=== PATIENT | female | born 1945 | race Caucasian/White ===

== ENCOUNTER → 2016-12-18 | Outpatient (CLI) | payer OTHER ==
[~2016-12-18] MED LIST: ADVIN25/60 INH; ALBUAER2 PO; PANT40TA PO; RSTOPS OP
[2016-12-18 12:23] LABS: BASO ABS # 0.04 K/uL (0-0.2); COMPLETE YES; EOS % 8.1 %; HEMATOCRIT 40.8 % (37-47); LYMPH % 29.5 %; LYMPH ABS # 1.16 K/uL (1.2-3.4); MEAN CELL VOLUME 90.1 fL (80-100); MEAN CORPUSCULAR HEMOGLOBIN 31.3 pg (25-34); MEAN CORPUSCULAR HGB CONC 34.8 g/dl (32-36); MEAN PLATELET VOLUME 9.8 fL (7.4-10.4); MONO % 12.5 %; NEUT % 48.9 %; PLATELET COUNT 210 K/uL (130-400); RED BLOOD COUNT 4.53 M/uL (4.2-5.4); WHITE BLOOD COUNT 3.93 K/uL (4.8-10.8)
[2016-12-18 13:00] LABS: BLOOD UREA NITROGEN 18 mg/dl (7-18); BUN/CREATININE RATIO 24.3 (10-20); CALCIUM 9.5 mg/dl (8.5-10.1); CARBON DIOXIDE 29 mmol/L (21-32); CHLORIDE 107 mmol/L (98-107); CREATININE 0.74 mg/dl (0.60-1.20); GLUCOSE 96 mg/dl (70-99); POTASSIUM 3.9 mmol/L (3.5-5.1); SODIUM 140 mmol/L (136-145)
[2016-12-18 13:04] LABS: CHOLESTEROL 224 mg/dl (0-200); CHOLESTEROL/HDL RATIO 2.4; HDL CHOLESTEROL 93 mg/dl; LDL CHOLESTEROL CALCULATED 122 mg/dl; TRIGLYCERIDES 44 mg/dl (0-150); VERY LOW DENSITY LIPOPROT CALC 9 mg/dl
== END | disposition home or self-care (01) ==
LOC: C.LAB1850 11:05
PROVIDERS: ATTEND Internal Medicine
DX: E55.9 Vitamin D deficiency, unspecified (principal); D72.1 Eosinophilia; J45.909 Unspecified asthma, uncomplicated; E78.5 Hyperlipidemia, unspecified

== ENCOUNTER 2017-04-09 14:37 | Emergency (ER) | payer OTHER ==
[~2017-04-09] VITALS: Ht 162.6 cm; Wt 54.5 kg
[2017-04-09 14:43] VITALS: TEMP 36.7; Ht 162.6 cm; Wt 54.5 kg
[2017-04-09] MEDS ORDERED: SODIUM CHLORIDE 0.9% 1000ML 1,000 ML IV STA ×2 (16:09→18:30)
[2017-04-09] MEDS ORDERED: ONDANSETRON 8 MG/54 ML D5W IV STA (16:09)
--- NOTE | 2017-04-09 16:10 | EMERGENCY ROOM VISIT NOTE ---
History Report prepared by Mag: Paradise Oneill Under the Supervision of: Jessica SharmaO. First contact with patient: 15:52 Chief Complaint: FLU LIKE SX Stated Complaint: FLU LIKE SX FOR A WEEK History of Present Illness The patient is a 71 year old female who presents to the Emergency Room with complaints of worsening flu-like symptoms beginning about four days ago. The patient reports body aches, nausea, a cough, decreased appetite, back soreness, increased fatigue, and wheezing. She notes an episode of vomiting occurring 2 weeks ago. She states her cough is productive of green sputum. She did not get a flu shot this year. The patient denies any history of pneumonia. Pt denies rashes, sores, swelling in legs, headache, change in vision, fevers, chest pain , shortness of breath, urinary symptoms, vomiting, diarrhea, and melena. The patient was never a smoker. No prior hx of pneumonia. Pt has not been taking any OTC meds for her symptoms all this week. States recently ill, but his symptoms improved. Source of History: patient Onset: four days ago Position: other (generalized) Quality: other (flu-like symptoms) Timing: worsening Associated Symptoms: + cough, + nausea, + back pain, + diarrhea, + fatigue, No fevers, No chills, No headache, No chest pain, No SOB, No vomiting, No urinary symptoms Review of Systems See HPI for pertinent positives & negatives. A total of 10 systems reviewed and were otherwise negative. Past Medical & Surgical Medical Problems: (1) Acid reflux Family History No pertinent family history Social History Smoking Status: Never Smoker Marital Status: Housing Status: lives with family Current/Historical Medications Scheduled Azithromycin (Zithromax), 250 MG PO DAILY Benzonatate (Tessalon Perles), 100 MG PO Q8 Fluticasone Prop/Salmeterol (Advair Diskus 250/50 60 Dose), 1 PUFF INH DAILY Pantoprazole (Protonix), 40 MG PO QAM Allergies Coded Allergies: Sulfa Antibiotics (Verified Allergy, Unknown, RASH, 04/09/17) Physical Exam Vital Signs Date Time Temp Pulse Resp B/P (MAP) Pulse Ox O2 Delivery O2 Flow Rate FiO2 04/09/17 18:41 75 20 130/77 93 Room Air 04/09/17 17:37 74 96 04/09/17 17:20 141/82 04/09/17 16:53 86 04/09/17 16:38 88 20 136/87 96 Room Air 04/09/17 16:35 136/87 04/09/17 14:43 36.7 120 16 124/77 95 Room Air Physical Exam GENERAL: alert, well appearing, well nourished, no distress, non-toxic EYE EXAM: normal conjunctiva, PERRL and EOM's grossly intact OROPHARYNX: no exudate, no erythema, lips, buccal mucosa, and tongue normal and mucous membranes are mildly dry. NECK: supple, no nuchal rigidity, no adenopathy, non-tender LUNGS: Clear to auscultation. Normal chest wall mechanics HEART: no murmurs, S1 normal and S2 normal ABDOMEN: abdomen soft, non-tender, normo-active bowel sounds, no masses, no rebound or guarding. BACK: Back is symmetrical on inspection and there is no deformity, no midline tenderness, no CVA tenderness. SKIN: no rashes and no bruising UPPER EXTREMITIES: upper extremities are grossly normal. LOWER EXTREMITIES: No pitting edema. NEURO EXAM: Normal sensorium, cranial nerves II-XII grossly intact, normal speech, no gross weakness of arms, no gross weakness of legs. Medical Decision & Procedures ER Provider Diagnostic Interpretation: Radiology results have been interpreted by the radiologist and reviewed by me. CHEST 2 VIEWS ROUTINE FINDINGS: Lung volumes are normal. Symmetric biapical opacities favor scarring. There is no pneumothorax or pleural effusion. Pulmonary vascularity is normal. Cardiomediastinal silhouette is unremarkable. IMPRESSION: 1. No acute cardiopulmonary findings. 2. Symmetric biapical opacities which favor scarring. Electronically signed by: Julio Calvillo M.D. Laboratory Results 04/09/17 16:15 Red Blood Count 5.34, Mean Corpuscular Volume 88.2, Mean Corpuscular Hemoglobin 31.5, Mean Corpuscular Hemoglobin Concent 35.7, Mean Platelet Volume 9.5, Neutrophils (%) (Auto) 46.9, Lymphocytes (%) (Auto) 32.5, Monocytes (%) (Auto) 18.3, Eosinophils (%) (Auto) 1.0, Basophils (%) (Auto) 1.0, Neutrophils # (Auto ) 1.46, Lymphocytes # (Auto) 1.01, Monocytes # (Auto) 0.57, Eosinophils # (Auto ) 0.03, Basophils # (Auto) 0.03 04/09/17 16:15 Test 04/09/17 16:10 04/09/17 16:15 04/09/17 16:45 Urine Color DK YELLOW Urine Appearance CLEAR (CLEAR) Urine pH 6.0 (4.5-7.5) Urine Specific [place] 1.025 (1.000-1.030) Urine Protein TRACE (NEG) Urine Glucose (UA) NEG (NEG) Urine Ketones 3+ (NEG) Urine Occult Blood NEG (NEG) Urine Nitrite NEG (NEG) Urine Bilirubin NEG (NEG) Urine Urobilinogen NEG (NEG) Urine Leukocyte Esterase NEG (NEG) Urine WBC (Auto) 1-5 /hpf (0-5) Urine RBC (Auto) 0-4 /hpf (0-4) Urine Hyaline Casts (Auto) 10-30 /lpf (0-5) Urine Epithelial Cells (Auto) >30 /lpf (0-5) Urine Bacteria (Auto) 1+ (NEG) Urine Renal Epithelial Cells /lpf (0-5) Urine Mucus PRESENT (NONE PRSENT) White Blood Count 3.11 K/uL (4.8-10.8) Red Blood Count 5.34 M/uL (4.2-5.4) Hemoglobin 16.8 g/dL (12.0-16.0) Hematocrit 47.1 % (37-47) Mean Corpuscular Volume 88.2 fL (80-100) Mean Corpuscular Hemoglobin 31.5 pg (25-34) Mean Corpuscular Hemoglobin Concent 35.7 g/dl (32-36) Platelet Count 185 K/uL (130-400) Mean Platelet Volume 9.5 fL (7.4-10.4) Neutrophils (%) (Auto) 46.9 % Lymphocytes (%) (Auto) 32.5 % Monocytes (%) (Auto) 18.3 % Eosinophils (%) (Auto) 1.0 % Basophils (%) (Auto) 1.0 % Neutrophils # (Auto) 1.46 K/uL (1.4-6.5) Lymphocytes # (Auto) 1.01 K/uL (1.2-3.4) Monocytes # (Auto) 0.57 K/uL (0.11-0.59) Eosinophils # (Auto) 0.03 K/uL (0-0.5) Basophils # (Auto) 0.03 K/uL (0-0.2) RDW Standard Deviation 40.4 fL (36.4-46.3) RDW Coefficient of Variation 12.5 % (11.5-14.5) Immature Granulocyte % (Auto) 0.3 % Immature Granulocyte # (Auto) 0.01 K/uL (0.00-0.02) Anion Gap 7.0 mmol/L (3-11) Est Creatinine Clear Calc Drug Dose 66.2 ml/min Estimated GFR () 102.7 Estimated GFR (Non- 88.6 BUN/Creatinine Ratio 17.7 (10-20) Calcium Level 9.0 mg/dl (8.5-10.1) Total Bilirubin 0.5 mg/dl (0.2-1) Aspartate Amino Transf (AST/SGOT) 28 U/L (15-37) Alanine Aminotransferase (ALT/SGPT) 29 U/L (12-78) Alkaline Phosphatase 68 U/L (45-117) Troponin I < 0.015 ng/ml (0-0.045) Total Protein 8.1 gm/dl (6.4-8.2) Albumin 3.6 gm/dl (3.4-5.0) Globulin 4.5 gm/dl (2.5-4.0) Albumin/Globulin Ratio 0.8 (0.9-2) Lipase 116 U/L (73-393) Influenza Type A Antigen Neg for Influ A (NEG) Influenza Type B Antigen Neg for Influ B (NEG) Lactic Acid Level 1.3 mmol/L (0.4-2.0) Laboratory results per my review. Medications Administered Medications (Trade) Dose Ordered Sig/Kassy Route Start Time Stop Time Status Last Admin Dose Admin Sodium Chloride 1,000 ml @ 999 mls/hr Q1H1M STAT IV 04/09/17 16:09 04/09/17 17:09 DC 04/09/17 16:09 999 MLS/HR Ondansetron HCl 8 mg/Dextrose 54 ml @ 216 mls/hr NOW STAT IV 04/09/17 17:06 04/09/17 17:20 DC 04/09/17 17:22 216 MLS/HR Potassium Chloride (Klor-Con M10) 40 meq NOW STAT PO 04/09/17 17:10 04/09/17 17:11 DC 04/09/17 18:05 40 MEQ Acetaminophen (Tylenol Tab) 1,000 mg NOW STAT PO 04/09/17 17:27 04/09/17 17:28 DC 04/09/17 18:05 1,000 MG Sodium Chloride 1,000 ml @ 999 mls/hr Q1H1M STAT IV 04/09/17 18:30 04/09/17 19:30 DC 04/09/17 18:37 999 MLS/HR Ketorolac Tromethamine (Toradol Inj) 15 mg NOW STAT IV 04/09/17 19:14 04/09/17 19:15 DC 04/09/17 19:42 15 MG Azithromycin (Zithromax Tab) 500 mg NOW ONCE PO 04/09/17 19:15 04/09/17 19:16 DC 04/09/17 19:42 500 MG ECG Indication: weakness Rate (beats per minute): 93 Rhythm: normal sinus Findings: no acute ischemic change ED Course 1603: The patient was evaluated in room C2B. A complete history and physical exam was performed. 1609: Ordered Ondansetron HCl 8 mg IV, Sodium Chloride 1000 ml @ 999 mls/hr IV. 1706: Ordered Ondansetron HCl 8 mg/Dextrose 54 ml @ 216 mls/hr. 1710: Ordered Potassium Chloride 40 meq PO. 1727: Ordered Tylenol tab 1000 mg PO. 1830: Ordered Sodium Chloride 1000 ml @ 999 mls/hr IV. 1904: The patient is still slightly in pain but is overall feeling better. 1914: Ordered Toradol Inj 15 mg IV. 1915: Ordered Zithromax Tab 500 mg PO. Medical Decision Differential diagnosis: Etiologies such as metabolic, infection, hypo/hyperglycemia, electrolyte abnormalities, cardiac sources, intracerebral event, toxicologic, neurologic, as well as others were entertained. Pt improved here following IVF, HR improved. No evidence of bacteremia/sepsis, no pneumonia/effusion seen on cxr, no evidence of chf/acs. Likely viral syndrome. Did not feel pt's PE and Hx consistent with acute sinusitis/AOM/deep space infection, did not feel warranted LP as very low suspicion for meningitis. Headache improved with IVF and tylenol. Discussed given ~1 week of persistent cough, possible bronchitis and started on azithromycin. Discussed with pt close f/u with PCP, susanx to watch/return for, she verbalized understanding and was agreeable with plan. Discussed hypokalemia and likely related to decreased po intake. Medication Reconcilliation Current Medication List: was personally reviewed by me Blood Pressure Screening Patient's blood pressure: Elevated blood pressure Blood pressure disposition: Elevated BP felt to be situational Impression Primary Impression: Influenza-like symptoms Additional Impressions: Upper respiratory infection Hypokalemia Acute bronchitis Scribe Attestation The scribe's documentation has been prepared under my direction and personally reviewed by me in its entirety. I confirm that the note above accurately reflects all work, treatment, procedures, and medical decision making performed by me. Departure Information Dispostion Home / Self-Care Prescriptions Benzonatate (Tessalon Perles) 100 Mg Cap 100 MG PO Q8 for Cough, #30 CAP Prov: Zayra Perales, DO 04/09/17 Azithromycin (Zithromax) 250 Mg Tab 250 MG PO DAILY, #4 TAB Prov: Zayra Perales, DO 04/09/17 Referrals Aj Mariano M.D. (PCP) Forms HOME CARE DOCUMENTATION FORM, IMPORTANT VISIT INFORMATION Patient Instructions My [facility] Additional Instructions Please follow up with your family doctor to be rechecked and assure the your symptoms are improving. You may use Tylenol and ibuprofen as needed for pain and fevers. Please try to drink plenty of fluids to stay well-hydrated, you may eat as tolerated. Please take the antibiotic as prescribed. If you develop any worsening symptoms including recurrent fevers or chills, abdominal pain, chest pain, worsening cough, noticed blood in your sputum, develop trouble breathing, rashes or sores, diarrhea, or you've any other new concerns, please return the emergency room. Problem Qualifiers Additional Impressions: Upper respiratory infection URI type: unspecified URI Qualified Codes: J06.9 - Acute upper respiratory infection, unspecified Acute bronchitis Bronchitis organism: unspecified organism Qualified Codes: J20.9 - Acute bronchitis, unspecified
[2017-04-09 16:45] LABS: BASO ABS # 0.03 K/uL (0-0.2); COMPLETE YES; HEMATOCRIT 47.1 % (37-47); IG% 0.3 %; LYMPH % 32.5 %; LYMPH ABS # 1.01 K/uL (1.2-3.4); MEAN CELL VOLUME 88.2 fL (80-100); MEAN CORPUSCULAR HEMOGLOBIN 31.5 pg (25-34); MEAN CORPUSCULAR HGB CONC 35.7 g/dl (32-36); MEAN PLATELET VOLUME 9.5 fL (7.4-10.4); MONO % 18.3 %; NEUT % 46.9 %; PLATELET COUNT 185 K/uL (130-400); RED BLOOD COUNT 5.34 M/uL (4.2-5.4); WHITE BLOOD COUNT 3.11 K/uL (4.8-10.8)
[2017-04-09] MEDS ORDERED: ONDANSETRON INJ 8 MG in DEXTROSE 5% 50ML 50 ML IV STA (17:06)
[2017-04-09 17:08] LABS: ALT/SGPT 29 U/L (12-78); BLOOD UREA NITROGEN 12 mg/dl (7-18); BUN/CREATININE RATIO 17.7 (10-20); CARBON DIOXIDE 31 mmol/L (21-32); CHLORIDE 98 mmol/L (98-107); CREATININE 0.68 mg/dl (0.60-1.20); GLUCOSE 90 mg/dl (70-99); POTASSIUM 2.8 mmol/L (3.5-5.1); SODIUM 136 mmol/L (136-145)
[2017-04-09] MEDS ORDERED: POTASSIUM CHLORIDE 10 MEQ TABCR PO STA (17:10)
[2017-04-09 17:13] LABS: ALB/GLOB RATIO 0.8 (0.9-2); ALKALINE PHOSPHATASE 68 U/L (45-117); AST/SGOT 28 U/L (15-37)
[2017-04-09 17:24] LABS: URINE APPEARANCE CLEAR (CLEAR); URINE BILIRUBIN NEG (NEG); URINE COLOR DK YELLOW; URINE EPITHELIAL CELL AUTO >30 /lpf (0-5); URINE NITRITE NEG (NEG); URINE SPECIFIC GRAVITY 1.025 (1.000-1.030); UROBILINOGEN NEG (NEG)
[2017-04-09] MEDS ORDERED: ACETAMINOPHEN 500 MG TAB PO STA (17:27)
[2017-04-09 17:32] LABS: MANUAL MICROSCOPIC REQUIRED? NO; REVIEW REQ? YES
[2017-04-09 17:36] LABS: URINE MUCUS PRESENT (NONE PRSENT); ZZUR CULT IF INDIC CLEAN CATCH YES
--- NOTE | 2017-04-09 17:37 | DIAGNOSTIC IMAGING REPORT ---
CHEST 2 VIEWS ROUTINE CLINICAL HISTORY: Shortness of breath and cough. COMPARISON STUDY: No previous studies for comparison. FINDINGS: Lung volumes are normal. Symmetric biapical opacities favor scarring. There is no pneumothorax or pleural effusion. Pulmonary vascularity is normal. Cardiomediastinal silhouette is unremarkable. IMPRESSION: 1. No acute cardiopulmonary findings. 2. Symmetric biapical opacities which favor scarring. Electronically signed by: Julio Calvillo M.D. 04/09/2017 5:35 PM Dictated Date/Time: 04/09/2017 5:34 PM
[2017-04-09 18:41] VITALS: BP 130/77; PULSE 75; O2SAT 93
[2017-04-09] MEDS ORDERED: KETOROLAC TROMETHAMINE 30 MG/ML VIAL IV STA (19:14)
[2017-04-09] MEDS ORDERED: AZITHROMYCIN 250 MG TAB PO ONE (19:15)
[2017-04-09] MEDS ORDERED: AZIT250T PO (19:26)
[2017-04-09] MEDS ORDERED: BENZ100C84 PO (19:27)
== END 2017-04-09 20:15 | disposition home or self-care (01) ==
LOC: C.EDB 14:39 → C.EDC 20:15
DX: J06.9 Acute upper respiratory infection, unspecified (principal); E87.6 Hypokalemia; J20.9 Acute bronchitis, unspecified; K21.9 Gastro-esophageal reflux disease without esophagitis; Z79.899 Other long term (current) drug therapy

== ENCOUNTER → 2017-04-24 | Outpatient (CLI) | payer OTHER ==
[~2017-04-24] MED LIST changes: -ALBUAER2 PO; +AZIT250T PO; +BENZ100C84 PO; -RSTOPS OP
== END | disposition home or self-care (01) ==
LOC: C.PATHSPEC 14:54
PROVIDERS: ATTEND Dentist Oral and Maxillofacial Pathology
DX: D22.9 Melanocytic nevi, unspecified (principal)